=== PATIENT | female | born 1965 | race Caucasian/White ===

== ENCOUNTER 2018-07-16 09:52 | Outpatient (CLI) | payer OTHER ==
[2013-07-16 22:12] VITALS: BP 142/76
--- NOTE | 2018-07-16 11:01 | Diagnostic Imaging Report ---
KATERINA FAM (RESPIRATORY SUPPORT TECHNICIAN) - OP [facility] [address] [facility].[address] [address] Report Submission Date: Jul 16, 2018 10:45:40 AM CDT Patient Study Name: [facility]OPE I Date: Jul 16, 2018 9:56:33 AM CDT Modality Type: DX Gender: F Description: C SPINE 4 VIEWS OR MORE : 67 Institution: [facility] Physician: KATERINA FAM (ESTEFANY) - OP Examination: Cervical spine History: RIGHT SIDED NECK PAIN X 2 WEEKS. NKI Comparison exams: None available Findings: 5 views of the cervical spine demonstrate normal height and alignment. No anterior compression. No abnormal listhesis. No odontoid abnormality. Oblique views without neuroforaminal narrowing. No prevertebral abnormality Impression: No acute appearing osseous abnormality Electronically signed on Jul 16, 2018 10:45:40 AM CDT by: Greg HUERTA
== END 2018-07-16 09:54 ==
LOC: RAD 09:52
PROVIDERS: ATTEND Nurse Practitioner Family
DX: M54.2 Cervicalgia (principal); R51 Headache
CPT/HCPCS: 72050

== ENCOUNTER 2018-07-18 12:16 | Outpatient (CLI) | payer OTHER ==
[2013-07-16 22:12] VITALS: BP 142/76
[2018-07-18 13:04] LABS: eGFR (Non-African) > 60
[2018-07-18 13:44] LABS: MEAN CORPUSCULAR HEMOGLOBIN 30.3 pg (28.0-34.0)
[2018-07-18 13:45] LABS: BASOPHILS % 0.8 % (0.0-1.5); EOSINOPHILS % 3.3 % (0.0-6.8); MONOCYTES % 7.7 % (0.0-11.0); NEUTROPHILS # 6.3 # k/uL (1.4-7.7)
== END 2018-07-18 12:18 ==
LOC: LAB 12:16
PROVIDERS: ATTEND Nurse Practitioner Family
DX: M79.10 Myalgia, unspecified site (principal)
CPT/HCPCS: 36415; 80053; 82550; 85025; 85651; 86140